=== PATIENT | female | born 1955 | race Caucasian/White ===

== ENCOUNTER 2018-06-20 10:44 | Emergency (ER) | payer MEDICAID ==
[2018-06-20] MEDS: Aspirin 81 MG Tab.Chew PO ONE (10:57)
--- NOTE | 2018-06-20 11:18 | EDM.PDOC ---
ED HPI GENERAL MEDICAL PROBLEM - General Chief Complaint: Respiratory Problem Stated Complaint: CHEST HEAVY Time Seen by Provider: 06/20/18 11:10 Source of Information: Reports: Patient, Family, RN - History of Present Illness INITIAL COMMENTS - FREE TEXT/NARRATIVE: 63 yr female presents with cough and chest pressure to left chest. States symptoms started last week, coughing at night and not sleeping well. She noticed some chest heaviness at work today. She is coughing yellow/green sputum. She isn't taking any inhaler or nebulizer at this time. States she has had some achiness and some chills and temperature, but doesn't have a thermometer. She does smoke and not since 5 am since Tuesday. States she smokes 2-10 cigarettes each day for about 40-50 years. She did quit for about 3 years. - Related Data Allergies Allergy/AdvReac Type Severity Reaction Status Date / Time tetracycline Allergy Hives Verified 06/20/18 11:11 Home Meds: Home Meds Acetaminophen [Tylenol Extra Strength] 1,000 mg PO Q8HR PRN 06/20/18 [History] Albuterol [Proventil Neb Soln] 2.5 mg .XX Q4HR #60 neb 06/20/18 [Rx] Budesonide/Formoterol [Symbicort 160-4.5 MCG] 1 puff INH BID #1 inhaler [Rx] Ibuprofen 400 mg PO Q4HR PRN 06/20/18 [History] guaiFENesin/Codeine Phosphate [Codeine-Guaifen 10-100 mg/5 ml] 5 ml PO TID PRN # 120 liquid 06/20/18 [Rx] ED ROS GENERAL - Review of Systems Review Of Systems: See Below Constitutional: Reports: No Symptoms HEENT: Reports: No Symptoms Respiratory: Reports: Cough, Sputum Cardiovascular: Reports: Chest Pain. Denies: Edema GI/Abdominal: Reports: No Symptoms : Reports: Dysuria Musculoskeletal: Reports: Other (right knee pain) Skin: Reports: No Symptoms Neurological: Reports: No Symptoms Psychiatric: Reports: No Symptoms Hematologic/Lymphatic: Reports: No Symptoms ED EXAM, GENERAL - Physical Exam Exam: See Below Exam Limited By: No Limitations General Appearance: Alert, No Apparent Distress Ears: Hearing Grossly Normal Nose: Normal Inspection, Normal Mucosa Throat/Mouth: Normal Voice, No Airway Compromise Head: Atraumatic, Normocephalic Neck: Normal Inspection, Supple, Non-Tender Respiratory/Chest: No Respiratory Distress, Rhonchi (Expiratory rhonchi and wheeze noted to mid lung, bilaterally) Cardiovascular: Regular Rate, Rhythm, No Edema GI/Abdominal: Normal Bowel Sounds, Soft, Non-Tender Back Exam: Normal Inspection Extremities: No Pedal Edema Neurological: Alert, Oriented, Normal Cognition Psychiatric: Normal Affect, Normal Mood Skin Exam: Warm, Dry, Normal Color Lymphatic: No Adenopathy Course - Vital Signs Last Recorded V/S: Last Vital Signs Temp 98.5 F 06/20/18 12:23 Pulse 65 06/20/18 12:23 Resp 18 06/20/18 12:23 BP 113/65 06/20/18 12:23 Pulse Ox 97 06/20/18 12:30 - Orders/Labs/Meds Orders: Active Orders 24 hr Category Date Time Status Cardiac Monitoring [RC] .As Directed Care 06/20/18 10:55 Active RT Aerosol Therapy [RC] ASDIRECTED Care 06/20/18 11:48 Active Labs: Laboratory Tests 06/20/18 06/20/18 06/20/18 Range/Units 11:15 11:15 11:34 WBC 5.5 D (4.0-11.0) K/uL RBC 4.31 (3.80-5.80) M/uL Hgb 13.1 (11.5-16.5) g/dL Hct 39.4 (37.0-47.0) % MCV 91 (76-96) fL MCH 30.4 (27.0-32.0) pg MCHC 33.2 (31.0-35.0) g/dL RDW 13.5 (11.0-16.0) % Plt Count 235 (150-500) K/uL MPV 9.7 (6.0-10.0) fL Neut % (Auto) 68.4 (45.0-70.0) % Lymph % (Auto) 23.4 (20.0-40.0) % [place] % (Auto) 6.5 (3.0-10.0) % Eos % (Auto) 1.3 (1.0-5.0) % Baso % (Auto) 0.4 (0.0-0.5) % Neut # (Auto) 3.78 (2.00-7.50) K/uL Lymph # (Auto) 1.29 L (1.50-4.00) K/uL [place] # (Auto) 0.36 (0.20-0.80) K/uL Eos # (Auto) 0.07 (0.04-0.40) K/uL Baso # (Auto) 0.02 (0.02-0.10) K/uL Sodium 140 (136-145) mmol/L Potassium 3.6 (3.5-5.1) mmol/L Chloride 104 (98-107) mmol/L Carbon Dioxide 25.5 (21.0-32.0) mmol/L Anion Gap 14.1 (5.0-15.0) mmol/L BUN 12 D (8-26) mg/dL Creatinine 0.83 D (0.55-1.02) mg/dL Est Cr Clr Drug Dosing TNP Estimated GFR (MDRD) > 60 (>60) MLS/MIN BUN/Creatinine Ratio 14.5 (6-25) Glucose 141 H D (74-100) mg/dL Calcium 7.8 L (8.5-10.1) mg/dL Total Bilirubin 0.4 (0.0-1.0) mg/dL AST 17 (15-37) U/L ALT 19 (12-78) U/L Alkaline Phosphatase 90 (46-116) U/L Troponin I < 0.017 (0.000-0.060) ng/mL Total Protein 7.2 (6.4-8.2) g/dL Albumin 3.5 (3.4-5.0) g/dL Globulin 3.7 (2.2-4.2) g/dL Albumin/Globulin Ratio 0.9 (0.8-2.0) TSH, Ultra Sensitive 0.484 D (0.358-3.740) uIU/mL Urine Color Yellow Urine Appearance Clear (CLEAR) Urine pH 5.5 (5.0-8.0) Ur Specific [place] <= 1.005 (1.003-1.030) Urine Protein Negative (NEGATIVE) mg/dL Urine Glucose (UA) Negative (NEGATIVE) mg/dL Urine Ketones Negative (NEGATIVE) mg/dL Urine Occult Blood Negative (NEGATIVE) Urine Nitrite Negative (NEGATIVE) Urine Bilirubin Negative (NEGATIVE) Urine Urobilinogen 0.2 (0.2-1.0) E.U./dL Ur Leukocyte Esterase Negative (NEGATIVE) Urine RBC 0-5 H /HPF Urine WBC 0-5 H /HPF Meds: Medications Discontinued Medications Generic Name Dose Route Start Last Admin Trade Name Freq PRN Reason Stop Dose Admin Albuterol/Ipratropium 3 ml 06/20/18 11:47 Duoneb 3.0-0.5 Mg/3 Ml NEB Q4H PRN Cough Albuterol/Ipratropium 3 ml 06/20/18 11:55 06/20/18 11:55 Duoneb 3.0-0.5 Mg/3 Ml NEB 06/20/18 11:56 3 ml ONETIME ONE Administration Aspirin 324 mg 06/20/18 10:55 06/20/18 10:57 Aspirin PO 06/20/18 10:56 324 mg ONETIME ONE Administration - Re-Assessments/Exams Free Text/Narrative Re-Assessment/Exam: 06/20/18 17:09 Acute bronchitis: EKG completed and NSR noted. Troponins are negative. Chest x-ray completed and reviewed, no pneumonia noted. Will start Albuterol nebulizer q 4-6 hour prn, Symbicort inhaler bid, and Quiafensin w codeine tid prn cough. Home and rest for 1-2 days. RTC in 10-14 days and as needed to ER or clinic if symptoms worsen. Departure - Departure Time of Disposition: 13:02 Disposition: Home, Self-Care 01 Condition: Good Clinical Impression: COPD exacerbation - Discharge Information *PRESCRIPTION DRUG MONITORING PROGRAM REVIEWED*: Not Applicable *COPY OF PRESCRIPTION DRUG MONITORING REPORT IN PATIENT SIMBA: Not Applicable Prescriptions: Albuterol [Proventil Neb Soln] 2.5 mg .XX Q4HR #60 neb Budesonide/Formoterol [Symbicort 160-4.5 MCG] 1 puff INH BID #1 inhaler guaiFENesin/Codeine Phosphate [Codeine-Guaifen 10-100 mg/5 ml] 5 ml PO TID PRN # 120 liquid PRN Reason: Cough Instructions: Budesonide; Formoterol Inhalation, Shortness of Breath, Adult, [id number], How to Use a Nebulizer, Adult, How to Use a Metered Dose Inhaler, Albuterol inhalation solution Referrals: PCP,None [Primary Care Provider] - Forms: ED Department Discharge Additional Instructions: Take Albuterol Neb every 4-6 hours for 10 days to help with breathing. Take Symbicort inhaler 1 puff every morning and night. May take cough medicine 5mL 3 times a day. Try to quit smoking if you are able. Rinse your mouth out with water after inhaler/nebulizer. Rinse your neb pieces with water after each use and dry on a paper towel. Follow up with Meagan in 10-14 days. Be off work today and tomorrow. - My Orders Last 24 Hours: My Active Orders 06/20/18 10:55 Cardiac Monitoring [RC] .As Directed 06/20/18 11:48 RT Aerosol Therapy [RC] ASDIRECTED - Assessment/Plan Last 24 Hours: My Active Orders 06/20/18 10:55 Cardiac Monitoring [RC] .As Directed 06/20/18 11:48 RT Aerosol Therapy [RC] ASDIRECTED Plan: Acute bronchitis: EKG completed and NSR noted. Troponins are negative. Chest x-ray completed and reviewed, no pneumonia noted. Will start Albuterol nebulizer q 4-6 hour prn, Symbicort inhaler bid, and Quiafensin w codeine tid prn cough. Home and rest for 1-2 days. RTC in 10-14 days and as needed to ER or clinic if symptoms worsen.
[2018-06-20] MEDS ORDERED: Albuterol/Ipratropium 3.0-0.5 MG/3 ML Neb Soln NEB PRN (11:47)
[2018-06-20] MEDS: Albuterol/Ipratropium 3.0-0.5 MG/3 ML Neb Soln NEB ONE (11:55)
[2018-06-20 13:21] VITALS: BP 113/65
--- NOTE | 2018-06-20 15:59 | CR ---
DATE OF SERVICE: 06/20/18 CLINICAL DATA: Cough. PA AND LATERAL CHEST: Comparison made to a prior exam dated 11/21/17. The heart size is normal. The aorta is ectatic. The lungs are mildly hyperexpanded but clear. No changes from the prior exam. No evidence of acute intrathoracic disease. [id number] [facility]
== END 2018-06-20 13:02 | disposition home or self-care (01) ==
LOC: LB.ED 10:44
DX: J44.1 Chronic obstructive pulmonary disease with (acute) exacerbation (principal); Z79.899 Other long term (current) drug therapy; Z88.1 Allergy status to other antibiotic agents
CPT/HCPCS: 36415; 71046; 80053; 81001; 84443; 84484; 85025; 93005; 99284-25; A9270-GY; J7620-GY

== ENCOUNTER 2020-03-03 13:07 | Emergency (ER) | payer MEDICAID | END 2020-03-03 13:45 | disposition home or self-care (01) | LOC: LB.ED 13:07 | DX: U07.1 COVID-19 (principal) | CPT/HCPCS: 99282; U0002 ==

== ENCOUNTER 2024-03-23 13:50 | Emergency (ER) | payer MEDICARE ==
[2024-03-23] MEDS: Albuterol/Ipratropium 3.0-0.5 MG/3 ML Neb Soln NEB ONE (14:36)
[2024-03-23 15:00] LABS: HEMATOCRIT 39.5 % (37.0-47.0); HEMOGLOBIN 13.1 g/dL (11.5-16.5); MEAN CORPUSCULAR HGB CONC 33.2 g/dL (31.0-35.0); MEAN PLATELET VOLUME 9.4 fL (6.0-10.0); RED BLOOD CELL COUNT 4.22 M/uL (3.80-5.80); RED CELL DISTRIBUTION WIDTH 13.5 % (11.0-16.0); WHITE BLOOD CELL COUNT,WBC 6.9 K/uL (4.0-11.0)
[2024-03-23 15:09] LABS: ANION GAP 12.7 mmol/L (5.0-15.0); BUN/CREATININE RATIO 16.7 (6-25); CALCIUM 8.5 mg/dL (8.5-10.1); CARBON DIOXIDE,CO2 28.3 mmol/L (21.0-32.0); CREATININE 0.72 mg/dL (0.55-1.02); EST CRCL DRUG DOSING (CG) 79.24 mL/min
[2024-03-23 15:15] LABS: INFLUENZA A NAA NEGATIVE (NEGATIVE); INFLUENZA B NAA NEGATIVE (NEGATIVE); RESPIRATORY SYNCYTIAL VIR NAA NEGATIVE (NEGATIVE)
[2024-03-23 15:19] LABS: CORONAVIRUS COVID-19 NAA NEGATIVE (NEGATIVE)
[2024-03-23] MEDS: Albuterol 0.083% 2.5 MG/3 ML Neb Soln NEB ONE (15:38)
== END 2024-03-23 15:50 | disposition home or self-care (01) ==
LOC: LB.ED 13:50
DX: J44.1 Chronic obstructive pulmonary disease with (acute) exacerbation (principal); I25.2 Old myocardial infarction; F17.210 Nicotine dependence, cigarettes, uncomplicated; Z90.49 Acquired absence of other specified parts of digestive tract; Z88.8 Allergy status to other drugs, medicaments and biological substances; Z79.51 Long term (current) use of inhaled steroids; Z79.899 Other long term (current) drug therapy
CPT/HCPCS: 0241U; 36415; 71045; 80048; 85027; 94640; 99285; J7620